=== PATIENT | male | born 1985 | race Caucasian/White ===

== ENCOUNTER 2019-04-03 12:38 | Observation (INO) ==
[2019-04-03 14:10] LABS: Basophils # 0.1 10*3/uL (0.0-0.2); Basophils % 1.5 % (0.0-0.8); Eosinophils # 0.1 10*3/uL (0.0-0.87); Eosinophils % 1.9 % (0.00-10.9); Hematocrit 46.5 VOL% (42.0-52.0); Hemoglobin 16.2 GM/DL (14.0-18.0); Immature Granulocytes % 1.5 %; Immature Granulocytes Absolute 0.11 #; Lymphocytes # 1.3 10*3/uL (1.4-4.0); Lymphocytes % 16.5 % (21.2-54.2); Mean Corpuscular HGB Conc 34.8 GM/DL (32-36); Mean Corpuscular Volume 83.2 FL (87-102); Mean Platelet Volume 9.2 FL (9.6-12.0); Neutrophils % 71.6 % (38.7-73.9); Platelet Count 355 T/CUMM (130-400); Red Blood Count 5.59 MC/CUMM (3.8-5.5); Red Cell Distribution Width 13.2 % (9.3-17.3); White Blood Count 7.6 T/CUMM (4-12)
[2019-04-03 14:31] LABS: Albumin 4.7 G/DL (3.4-5.0); Bilirubin,Total 0.6 MG/DL (0.2-1.0); Calcium 9.7 MG/DL (8.5-10.1); Total Protein 7.9 G/DL (6.4-8.3)
[2019-04-03 14:41] LABS: CKMB % 1.8 %; Troponin I < 0.015 NG/ML (0.00-0.045)
[2019-04-03 14:50] LABS: Apearance,Urine CLEAR (Clear); Bilirubin,Urine Negative (Negative); Blood, Urine Negative (Negative); Glucose,Urine (UA) Negative (Negative); Ketones,Urine Negative (Negative); Mucus,Urine Occasional /LPF (Occasional); Nitrite,Urine Negative (Negative); Protein,Urine Negative; RBC,Urine 1 /HPF (0-4); Urine Color Colorless (Yellow); Urine Specific Gravity 1.003 (1.001-1.035); Urine Urobilinogen < 2.0 EU/DL (0.2-1.0)
[2019-04-03] MEDS ORDERED: SODIUM CHLORIDE 0.9% 1,000 ML IV STA ×2 (14:53→17:12)
[2019-04-03 15:14] LABS: Barbiturates Screen,Urine Negative (Negative); Benzodiazepines Screen,Urine Negative (Negative); Cannabinoid Screen,Urine Negative (Negative); Opiate Screen,Urine Positive (Negative); Phencyclidine Screen,Urine Negative (Negative)
[2019-04-03] MEDS ORDERED: DOCUSATE SODIUM 100 MG CAPSULE PO PRN (18:01)
[2019-04-03] MEDS ORDERED: ONDANSETRON 4 MG/2 ML VIAL IV PRN (18:01)
[2019-04-03] MEDS ORDERED: ACETAMINOPHEN 325 MG TABLET PO PRN (18:01)
[2019-04-03] MEDS ORDERED: BENZTROPINE 0.5 MG TABLET PO SCH (21:00)
[2019-04-03] MEDS ORDERED: ENOXAPARIN 40 MG/0.4 ML SYRINGE SUBCUT SCH (21:00)
[2019-04-03] MEDS: DULoxetine 30 MG CAPSULE PO SCH (21:46)
[2019-04-03] MEDS: SODIUM CHLORIDE 0.45% 1,000 ML IV SCH (21:46)
[2019-04-04 05:11] LABS: Basophils # 0.1 10*3/uL (0.0-0.2); Eosinophils # 0.2 10*3/uL (0.0-0.87); Eosinophils % 5.3 % (0.00-10.9); Hemoglobin 13.9 GM/DL (14.0-18.0); Immature Granulocytes % 1.3 %; Immature Granulocytes Absolute 0.05 #; Lymphocytes # 1.2 10*3/uL (1.4-4.0); Lymphocytes % 30.8 % (21.2-54.2); Mean Corpuscular HGB Conc 33.1 GM/DL (32-36); Mean Corpuscular Volume 86.6 FL (87-102); Mean Platelet Volume 9.2 FL (9.6-12.0); Monocytes % 11.7 % (1.7-12.7); Neutrophils % 48.9 % (38.7-73.9); Platelet Count 229 T/CUMM (130-400); Red Blood Count 4.85 MC/CUMM (3.8-5.5); Red Cell Distribution Width 13.3 % (9.3-17.3); White Blood Count 3.9 T/CUMM (4-12)
[2019-04-04] MEDS: SODIUM CHLORIDE 0.45% 1,000 ML IV SCH ×2 (05:20→12:50)
[2019-04-04 05:30] LABS: Calcium 8.6 MG/DL (8.5-10.1); Osmolality,Calculated 280.4 MOS/KG (273-304)
[2019-04-04] MEDS ORDERED: LOSARTAN 50 MG TABLET PO SCH (09:00)
[2019-04-04] MEDS ORDERED: LURASIDONE 40 MG TABLET PO SCH (09:00)
[2019-04-04] MEDS: DULoxetine 30 MG CAPSULE PO SCH (09:46)
[2019-04-04 11:37] VITALS: BP 125/89
[2019-04-04] MEDS ORDERED: NICOTINE 14 MG/24 HR PATCH TRANSDERM PRN (11:38)
== END 2019-04-04 13:01 | disposition home or self-care (01) ==
LOC: N.EDINP 12:38 → N.ED 12:38 → N.TELEN 18:49
PROVIDERS: ADMIT Hospitalist; ATTEND Hospitalist